=== PATIENT | male | born 1985 | race Caucasian/White ===

== ENCOUNTER 2018-08-02 21:44 | Emergency (ER) | payer OTHER ==
[~2018-08-02] VITALS: Ht 175.3 cm; Wt 83.9 kg
== END 2018-08-02 22:52 | disposition home or self-care (01) ==
LOC: ER 21:44
DX: S61.011A Laceration without foreign body of right thumb without damage to nail, initial encounter (principal); W26.9XXA Contact with unspecified sharp object(s), initial encounter; Y93.89 Activity, other specified; Y92.89 Other specified places as the place of occurrence of the external cause; Y99.8 Other external cause status

== ENCOUNTER 2021-03-23 18:02 | Emergency (ER) | payer OTHER ==
[~2021-03-23] VITALS: Ht 172.7 cm; Wt 68.0 kg
--- NOTE | ~2021-03-23 | EMS ---
[address] [address] EMS Patient Care Report Name: ELVIS BLAKE [id number] Admission: 03/23/21 Attend Phys: Discharge: Date of : 89 Report #: [id number] THIS REPORT FOR: //name// Report Transmitted: 04/11/2021 14:04 EMS Care Summary [place], [place]/[facility] Incident [id number] @ 03/23/2021 17:15 Incident Location [address] Patient ELVIS BLAKE Male, 35 Years 1985 Patient Address [address] [place] [address] Patient History Behavioral/Psychiatric Disorder, Chief Complaint SI Disposition Transported No Lights/[place] Dis[place] Reason Psychiatric Problem/Abnormal Behavior/Suicide Attempt Transported To [facility] Narrative MEDIC 30 RESPONDS TO AN APARTMENT COMPLEX ON A REPORTED SUICIDE ATTEMPT. UPON ARRIVAL EMS FINDS ADULT MALE EXITING THE BUILDING WITH A GUT DROPPER AND [employer] OFFICERS NEARBY. GUT DROPPER REPORTS A LABORER AIRPORT MAINTENANCE ARRIVED TODAY TO CHECK ON PT THIS EARLIER AND PT REFUSED TO OPEN THE DOOR FOR HER, LEADING TO GUT DROPPER LATER ARRIVING. 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 CYBER ANALYST STATES PT HAS RECENTLY QUIT HIS JOB AND APPEARS TO HAVE STOPPED TAKING HIS MEDICATIONS WELL. UPON ATTEMPTING ASSESSMENT ON PT, IT IS NOTED THAT PT APPEARS TO BE IGNORING RESPONDERS AND WILL OFTEN SIMPLY NOT RESPOND OR ACKNOWLEDGE CREW IN ANY WAY. PT WILL OCCASIONALLY STATE THAT HE DOES NOT WISH TO COMMUNICATE WITH RESPONDERS, AND REFUSES ASSESSMENT, QUESTIONS, OR PHYSICAL EXAM. PT DOES ALLOW SOME V/S ASSESSMENT. PT TRANSPORTED TO ED WITH ONGOING ASSESSMENT. REPORT TO STAFF UPON ARRIVAL. Initial Vitals @17:51P: 110,R: 15,BP: 171/113,SpO2: 100, @17:51P: 100,R: 15,SpO2: 100, @17:41P: 104,R: 14,BP: 156/105,GCS: 15,CO: 0,SpO2: 100,Revised Trauma: 12, Assessments @17:41MENTAL:Other,SKIN:HEENT:Head/Face: No Abnormalities,Neck/Airway: No Abnormalities,LUNG SOUNDS:ABDOMEN:PELVIS//GI:EXTREMITIES:PULSE:NEURO:@17:52MENTAL:SKIN:HEENT:Head /Face: No Abnormalities,Neck/Airway: No Abnormalities,LUNG SOUNDS:ABDOMEN:PELVIS//GI:EXTREMITIES:PULSE:NEURO: Impression Behavioral/psychiatric episode Procedures @17:41ALS AssessmentResponse: UnchangedSucceeded Timeline 17:14,Call Received 17:14,Dispatch Notified 17:15,Dispatched 17:16,En Route 17:30,On Scene 17:40,At Patient 17:41,ALS Assessment,Response: UnchangedSucceeded, 17:41,BP: 156/105 M,PULSE: 104,RR: 14 R,SPO2: 100 Ox,ETCO2: ,BG: ,PAIN: ,GCS: 15, 17:51,BP: / M,PULSE: 100,RR: 15 R,SPO2: 100 Ox,ETCO2: ,BG: ,PAIN: ,GCS: , 17:51,BP: 171/113 M,PULSE: 110,RR: 15 R,SPO2: 100 Ox,ETCO2: ,BG: ,PAIN: ,GCS: , 17:55,Depart Scene 17:59,At Destination 18:14,Call Closed Disclaimer v1.1 Copyright 2020 [employer] [address] [address] EMS Patient Care Report Name: ELVIS BLAKE [facility]#: [id number] Admission: 03/23/21 Attend Phys: Discharge: Date of : 89 Report #: [id number] This EMS Care Summary contains data elements from the applicable legal record (which may be displayed differently). It is designed to provide pertinent information for the following purposes: continuity of care, clinical quality, and state data reporting. The complete legal record is available to ED staff and administrators of the receiving hospital in [facility]'s Patient Tracker. All data is provided "as is."
[2021-03-23 18:57] LABS: ABSOLUTE NEUTROPHILS 7.2 thou/uL (1.4-8.2); BASOPHILS 0.3 % (0.0-2.0); EOSINOPHILS 0.4 % (0.0-3.0); HEMATOCRIT 49.1 % (42.0-52.0); LYMPHOCYTES 20.8 % (24.0-44.0); MCH 31.2 pg (26.0-34.0); MCHC 34.7 g/dL (28.0-37.0); MONOCYTES 4.6 % (1.0-8.0); PLATELET COUNT 268 thou/uL (150-400); POLYS 73.9 % (36.0-66.0); POTASSIUM 3.9 mmol/L (3.5-5.1); RBC 5.45 mil/uL (4.50-6.00); RDW 14.1 % (10.5-14.5); WBC 9.7 thou/uL (4.0-11.0)
[2021-03-23] MEDS ORDERED: TRICOR48 MG PO (18:58)
[2021-03-23 19:03] LABS: ALBUMIN 4.4 g/dL (3.4-5.0); SALICYLATE 2.8 mg/dL (2.8-20.0); TOTAL PROTEIN 8.1 g/dL (6.4-8.2)
[2021-03-23] MEDS ORDERED: PROZAC20 M1 PO (19:05)
[2021-03-23] MEDS ORDERED: LISINOPRIL20 MG PO (19:07)
[2021-03-23] MEDS ORDERED: MINOCYCLINE HC100 M2 PO (19:08)
[2021-03-23] MEDS ORDERED: LORATIDINE 10 M10 M1 PO (19:08)
[2021-03-23] MEDS ORDERED: OMEPRAZOLE 20 M20 M1 PO (19:09)
[2021-03-23] MEDS ORDERED: SEROQUEL200 MG PO (19:09)
[2021-03-23] MEDS ORDERED: THEREMS-M TABL1 EACH PO (19:10)
[2021-03-23] MEDS ORDERED: TRILEPTAL300 MG PO (19:10)
[2021-03-23] MEDS ORDERED: TYLENOL325 M1 PO (19:12)
[2021-03-23] MEDS ORDERED: BUTALB-APAP-CA1 EACH PO (19:12)
[2021-03-23] MEDS ORDERED: IBU800 MG PO (19:13)
[2021-03-23 22:03] LABS: URINE BILIRUBIN 1+ (Negative); URINE BLOOD NEGATIVE (Negative); URINE CLARITY CLEAR; URINE COLOR YELLOW; URINE GLUCOSE-RANDOM* NEGATIVE (Negative); URINE KETONES TRACE (Negative); URINE LEUKOCYTES-REFLEX NEGATIVE (Negative); URINE NITRITE-REFLEX NEGATIVE (Negative); URINE PROTEIN (DIPSTICK) TRACE (Negative); URINE SPECIFIC GRAVITY >= 1.030 (1.005-1.035)
[2021-03-23 22:12] LABS: AMP/METHAMP Negative (Negative); BARBITURATES Negative (Negative); BENZODIAZEPINES Negative (Negative); COCAINE Negative (Negative); METHADONE Negative (Negative); OPIATES Negative (Negative); PCP Negative (Negative)
[2021-03-24 12:42] VITALS: BP 133/79
--- NOTE | 2021-03-27 07:09 | EKG ---
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 : 1985 Requested By: Jam Joseph Order Number: [id number] MD: Evan Turner Measurements Intervals [place] Rate: 108 P: 34 AK: 177 QRS: -30 QRSD: 83 T: 13 QT: 364 QTc: 488 Interpretive Statements Sinus tachycardia Probable left ventricular hypertrophy ST elev, probable normal early repol pattern Borderline prolonged QT interval Artifact in lead(s) I,II,III,aVR,aVL,aVF No previous ECG available for comparison Electronically Signed On 03-27-2021 7:08:58 CDT by Evan Turner [email or web address] <ELECTRONICALLY SIGNED> By: Evan Turner MD, [facility] 03/27/21 0708 [id number] 0232 Evan Turner MD, FACC /EPI
--- NOTE | 2021-03-27 07:09 | EKG ---
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 : 1985 Requested By: Sushma Jean Order Number: [id number] MD: Evan Turner Measurements Intervals [place] Rate: 80 P: 43 DC: 162 QRS: -18 QRSD: 117 T: 4 QT: 395 QTc: 456 Interpretive Statements Sinus rhythm Probable left ventricular hypertrophy Baseline wander in lead(s) V5,V6 Compared to ECG 03/24/2021 02:32:53 Sinus tachycardia no longer present ST (T wave) deviation no longer present Electronically Signed On 03-27-2021 7:09:02 CDT by Evan Turner [email or web address] <ELECTRONICALLY SIGNED> By: Evan Turner MD, [facility] 03/27/21 0709 [id number] Evan Turner MD, [facility] /EPI
== END 2021-03-24 13:01 ==
LOC: ER 18:02
PROVIDERS: Emergency Medicine
DX: S50.812A Abrasion of left forearm, initial encounter (principal); Z20.822 Contact with and (suspected) exposure to COVID-19; R45.851 Suicidal ideations; X78.1XXA Intentional self-harm by knife, initial encounter; Y93.89 Activity, other specified; Y92.89 Other specified places as the place of occurrence of the external cause; Y99.8 Other external cause status